=== PATIENT | male | born 1975 | race Two or more races ===

== ENCOUNTER 2017-09-05 18:26 | Emergency (ER) | payer MEDICAID ==
[2017-09-05 19:19] LABS: ADD MAN DIFF? NO
[2017-09-05 19:22] LABS: BASOPHILS % 0.5 % (0.0-2.0); EOSINOPHILS # 0.7 10^3/ul (0.0-0.5); EOSINOPHILS % 8.5 % (0.0-7.0); HEMATOCRIT 25.8 % (42.0-52.0); HEMOGLOBIN 8.4 g/dl (14.0-18.0); LYMPHOCYTES # 1.4 10^3/ul (0.8-2.9); LYMPHOCYTES % 17.5 % (15.0-51.0); MEAN CORPUSCULAR HEMOGLOBIN 33.1 pg (29.0-33.0); MEAN CORPUSCULAR HGB CONC 32.6 g/dl (32.0-37.0); MEAN CORPUSCULAR VOLUME 101.6 fl (82.0-101.0); MEAN PLATELET VOLUME 9.5 fl (7.4-10.4); MONOCYTE # 0.7 10^3/ul (0.3-0.9); NEUTROPHILS % 64.1 % (39.0-77.0); PLATELET COUNT 261 10^3/UL (140-415); RED BLOOD COUNT 2.54 10^6/ul (4.70-6.10); RED CELL DISTRIBUTION WIDTH 13.1 % (11.5-14.5)
[2017-09-05 19:22] LABS: WHITE BLOOD COUNT 7.9 10^3/ul (4.8-10.8)
[2017-09-05] MEDS: ASPIRIN 81 MG TAB PO (19:24)
[2017-09-05] MEDS: FUROSEMIDE 40 MG INJ IV (19:24)
[2017-09-05] MEDS: NITROGLYCERIN 2% 1 GM OINT PKT TD (19:25)
[2017-09-05 19:41] LABS: INR 0.98; PROTIME 13.1 Sec (11.9-14.9)
[2017-09-05 19:46] LABS: ANION GAP 15 (8-16); BLOOD UREA NITROGEN 56 mg/dl (7-20); CALCIUM 8.3 mg/dl (8.4-10.2); CARBON DIOXIDE 35 mmol/L (21-31); CHLORIDE 95 mmol/L (97-110); CREATININE 8.61 mg/dl (0.61-1.24); GLUCOSE 94 mg/dl (70-220); POTASSIUM 5.1 mmol/L (3.5-5.1); SODIUM 140 mmol/L (135-144)
[2017-09-05 19:56] LABS: TROPONIN-I 0.048 ng/ml (0.00-0.12)
[2017-09-05] MEDS ORDERED: ONDANSETRON 4 MG INJ IV (21:00)
[2017-09-05] MEDS ORDERED: ACETAMINOPHEN 325 MG TAB PO ×2 (21:00→21:30)
[2017-09-05] MEDS ORDERED: ONDANSETRON 4 MG TAB PO (21:30)
[2017-09-05] MEDS ORDERED: NACL 0.9% 3 ML SYG IV (21:30)
== END 2017-09-05 22:09 | disposition left against medical advice (07) ==
LOC: E/R 18:26
DX: E87.70 Fluid overload, unspecified (principal); N18.6 End stage renal disease; R00.2 Palpitations; Z99.2 Dependence on renal dialysis; Z79.01 Long term (current) use of anticoagulants
CPT/HCPCS: 36415; 71045; 80048; 84484; 85025; 85610; 85730; 93005; 99285-25

== ENCOUNTER 2017-09-06 22:00 | Inpatient (IN) | payer MEDICAID ==
[2017-09-07] MEDS ORDERED: NACL 0.9% 3 ML SYG IV (01:00)
[2017-09-07] MEDS ORDERED: ACETAMINOPHEN 325 MG TAB PO ×2 (01:00→11:30)
[2017-09-07] MEDS ORDERED: METOCLOPRAMIDE 10 MG INJ IV (01:00)
[2017-09-07] MEDS: FUROSEMIDE 40 MG INJ IV ×2 (01:09→04:35)
[2017-09-07] MEDS: hydrALAzine 20 MG INJ IV ×3 (01:09→09:16)
[2017-09-07] MEDS: NITROGLYCERIN (SL) 0.4 MG TAB SL (01:12)
[2017-09-07 01:35] LABS: ADD MAN DIFF? NO
[2017-09-07 01:37] LABS: WHITE BLOOD COUNT 9.1 10^3/ul (4.8-10.8)
[2017-09-07 01:37] LABS: BASOPHIL # 0.1 10^3/ul (0.0-0.1); BASOPHILS % 0.7 % (0.0-2.0); EOSINOPHILS # 0.8 10^3/ul (0.0-0.5); EOSINOPHILS % 8.5 % (0.0-7.0); HEMOGLOBIN 8.7 g/dl (14.0-18.0); LYMPHOCYTES # 1.7 10^3/ul (0.8-2.9); LYMPHOCYTES % 19.1 % (15.0-51.0); MEAN CORPUSCULAR HEMOGLOBIN 32.6 pg (29.0-33.0); MEAN CORPUSCULAR HGB CONC 32.2 g/dl (32.0-37.0); MEAN CORPUSCULAR VOLUME 101.1 fl (82.0-101.0); MEAN PLATELET VOLUME 9.6 fl (7.4-10.4); MONOCYTE # 0.9 10^3/ul (0.3-0.9); MONOCYTES % 9.9 % (0.0-11.0); NEUTROPHIL # 5.6 10^3/ul (1.6-7.5); NEUTROPHILS % 61.5 % (39.0-77.0); PLATELET COUNT 271 10^3/UL (140-415); RED BLOOD COUNT 2.67 10^6/ul (4.70-6.10); RED CELL DISTRIBUTION WIDTH 12.9 % (11.5-14.5)
[2017-09-07] MEDS ORDERED: LABETALOL HCL 20MG INJ (01:52)
[2017-09-07] MEDS: LABETALOL HCL 20MG INJ IV ×2 (01:59→04:15)
[2017-09-07 02:04] LABS: ALANINE AMINOTRANSFERASE 164 IU/L (13-69); ALBUMIN 3.2 g/dl (3.3-4.9); ALBUMIN/GLOBULIN RATIO 1.18; ALKALINE PHOSPHATASE 163 IU/L (42-121); ANION GAP 22 (8-16); ASPARTATE AMINO TRANSFERASE 111 IU/L (15-46); BLOOD UREA NITROGEN 79 mg/dl (7-20); CALCIUM 8.8 mg/dl (8.4-10.2); CARBON DIOXIDE 30 mmol/L (21-31); CHLORIDE 95 mmol/L (97-110); CREATININE 11.41 mg/dl (0.61-1.24); GLUCOSE 98 mg/dl (70-220); LIPASE 218 U/L (23-300); POTASSIUM 5.2 mmol/L (3.5-5.1); SODIUM 142 mmol/L (135-144); TOTAL PROTEIN 5.9 g/dl (6.1-8.1)
[2017-09-07 02:06] LABS: CHOL/HDL RATIO 2.9 RATIO; CHOLESTEROL 128 mg/dl (100-200); HDL CHOLESTEROL 44 mg/dl (27-67); LDL CHOLESTEROL,CALCULATED 70 mg/dl; MAGNESIUM 2.5 mg/dl (1.7-2.5); TRIGLYCERIDES 71 mg/dl (0-149)
[2017-09-07 02:06] LABS: PHOSPHORUS 8.7 mg/dl (2.5-4.9)
[2017-09-07 02:08] LABS: HEMOGLOBIN A1C 4.8 % (0-5.9)
[2017-09-07] MEDS: PROMETHAZINE/CODEINE 5ML CUP PO (02:57)
[2017-09-07] MEDS ORDERED: FUROSEMIDE 40 MG INJ IV (03:00)
[2017-09-07] MEDS ORDERED: METOLAZONE 5 MG TAB PO (03:00)
[2017-09-07] MEDS: METOLAZONE 5 MG TAB PO (03:48)
[2017-09-07] MEDS ORDERED: ALBUTEROL/IPRATROPIUM (NEB) 3 ML AMP HHN (04:00)
[2017-09-07] MEDS: LORAZEPAM 2 MG INJ IV (04:11)
[2017-09-07 04:41] LABS: B-TYPE NATRIURETIC PEPTIDE 138000 PG/ML (0-125)
[2017-09-07 10:37] LABS: HEPATITIS B SURFACE ANTIGEN NEGATIVE (NEGATIVE)
[2017-09-07] MEDS: NIFEdipine (XL) 60 MG TAB PO (11:00)
[2017-09-07] MEDS ORDERED: ONDANSETRON 4 MG INJ IV (11:30)
[2017-09-07] MEDS ORDERED: FAMOTIDINE 20 MG TAB PO (11:30)
[2017-09-07] MEDS ORDERED: ZOLPIDEM 5 MG TAB PO (11:30)
[2017-09-07] MEDS: CALCIUM ACETATE 667 MG CAP PO ×2 (11:45→18:14)
[2017-09-07] MEDS: DOCUSATE SODIUM 100 MG CAP PO ×2 (11:58→21:45)
[2017-09-07] MEDS: HEPARIN 5,000 UNIT/0.5 ML VIAL SC ×2 (11:59→21:47)
[2017-09-07] MEDS: NIFEdipine (XL) 90 MG TAB PO (21:49)
[2017-09-07] MEDS: FAMOTIDINE 20 MG TAB PO (21:50)
[2017-09-08 05:03] LABS: ADD MAN DIFF? NO
[2017-09-08 05:08] LABS: BASOPHIL # 0.1 10^3/ul (0.0-0.1); BASOPHILS % 0.7 % (0.0-2.0); EOSINOPHILS # 0.7 10^3/ul (0.0-0.5); EOSINOPHILS % 7.5 % (0.0-7.0); HEMATOCRIT 27.5 % (42.0-52.0); HEMOGLOBIN 8.9 g/dl (14.0-18.0); LYMPHOCYTES # 1.2 10^3/ul (0.8-2.9); LYMPHOCYTES % 12.5 % (15.0-51.0); MEAN CORPUSCULAR HEMOGLOBIN 32.7 pg (29.0-33.0); MEAN CORPUSCULAR HGB CONC 32.4 g/dl (32.0-37.0); MEAN CORPUSCULAR VOLUME 101.1 fl (82.0-101.0); MEAN PLATELET VOLUME 9.3 fl (7.4-10.4); MONOCYTES % 10.1 % (0.0-11.0); NEUTROPHIL # 6.8 10^3/ul (1.6-7.5); NEUTROPHILS % 68.8 % (39.0-77.0); PLATELET COUNT 307 10^3/UL (140-415); RED BLOOD COUNT 2.72 10^6/ul (4.70-6.10); RED CELL DISTRIBUTION WIDTH 13.1 % (11.5-14.5)
[2017-09-08 05:08] LABS: WHITE BLOOD COUNT 9.8 10^3/ul (4.8-10.8)
[2017-09-08 05:43] LABS: ANION GAP 18 (8-16); BLOOD UREA NITROGEN 60 mg/dl (7-20); CALCIUM 8.5 mg/dl (8.4-10.2); CARBON DIOXIDE 27 mmol/L (21-31); CHLORIDE 96 mmol/L (97-110); GLUCOSE 136 mg/dl (70-220); MAGNESIUM 2.3 mg/dl (1.7-2.5); SODIUM 136 mmol/L (135-144)
[2017-09-08 05:45] LABS: ALANINE AMINOTRANSFERASE 113 IU/L (13-69); ALBUMIN 2.8 g/dl (3.3-4.9); ALKALINE PHOSPHATASE 143 IU/L (42-121); ASPARTATE AMINO TRANSFERASE 39 IU/L (15-46); TOTAL PROTEIN 5.1 g/dl (6.1-8.1)
[2017-09-08] MEDS: DOCUSATE SODIUM 100 MG CAP PO ×2 (08:44→21:51)
[2017-09-08] MEDS: HEPARIN 5,000 UNIT/0.5 ML VIAL SC ×2 (08:46→21:53)
[2017-09-08] MEDS: CALCIUM ACETATE 667 MG CAP PO ×3 (08:46→17:45)
[2017-09-08] MEDS: NIFEdipine (XL) 90 MG TAB PO ×2 (08:47→21:51)
[2017-09-08] MEDS: FAMOTIDINE 20 MG TAB PO (21:50)
[2017-09-09 05:07] LABS: WHITE BLOOD COUNT 9.7 10^3/ul (4.8-10.8)
[2017-09-09 05:07] LABS: ADD MAN DIFF? NO; BASOPHIL # 0.1 10^3/ul (0.0-0.1); BASOPHILS % 0.8 % (0.0-2.0); EOSINOPHILS # 0.9 10^3/ul (0.0-0.5); EOSINOPHILS % 8.9 % (0.0-7.0); HEMATOCRIT 28.5 % (42.0-52.0); HEMOGLOBIN 9.1 g/dl (14.0-18.0); LYMPHOCYTES # 1.4 10^3/ul (0.8-2.9); LYMPHOCYTES % 14.8 % (15.0-51.0); MEAN CORPUSCULAR HEMOGLOBIN 32.4 pg (29.0-33.0); MEAN CORPUSCULAR HGB CONC 31.9 g/dl (32.0-37.0); MEAN CORPUSCULAR VOLUME 101.4 fl (82.0-101.0); MEAN PLATELET VOLUME 9.4 fl (7.4-10.4); MONOCYTE # 1.2 10^3/ul (0.3-0.9); MONOCYTES % 11.9 % (0.0-11.0); NEUTROPHIL # 6.1 10^3/ul (1.6-7.5); NEUTROPHILS % 63.3 % (39.0-77.0); PLATELET COUNT 288 10^3/UL (140-415); RED BLOOD COUNT 2.81 10^6/ul (4.70-6.10)
[2017-09-09 05:41] LABS: ALBUMIN 3.1 g/dl (3.3-4.9); ANION GAP 14 (8-16); BLOOD UREA NITROGEN 49 mg/dl (7-20); CALCIUM 9.2 mg/dl (8.4-10.2); CARBON DIOXIDE 31 mmol/L (21-31); CHLORIDE 98 mmol/L (97-110); GLUCOSE 103 mg/dl (70-220); PHOSPHORUS 7.8 mg/dl (2.5-4.9); POTASSIUM 5.2 mmol/L (3.5-5.1); SODIUM 138 mmol/L (135-144)
[2017-09-09] MEDS: hydrALAzine 20 MG INJ IV (05:46)
[2017-09-09] MEDS: CALCIUM ACETATE 667 MG CAP PO ×3 (08:43→18:09)
[2017-09-09] MEDS: DOCUSATE SODIUM 100 MG CAP PO ×3 (08:43→22:31)
[2017-09-09] MEDS: NIFEdipine (XL) 90 MG TAB PO ×3 (08:44→22:30)
[2017-09-09] MEDS: HEPARIN 5,000 UNIT/0.5 ML VIAL SC ×2 (08:45→21:00)
[2017-09-09] MEDS: PROMETHAZINE/CODEINE 5ML CUP PO (10:09)
[2017-09-09] MEDS: ALBUMIN HUMAN 25% 100 ML IV (12:32)
[2017-09-09] MEDS: NA POLYST SULFON 15 GM/60 ML BTL PO (15:00)
[2017-09-09] MEDS: FAMOTIDINE 20 MG TAB PO ×2 (21:00→22:30)
== END 2017-09-09 22:47 | disposition home or self-care (01) | DRG 640 ==
LOC: E/R 22:00 → MS3 09-07 00:40
PROC: 5A1D70Z Performance of Urinary Filtration, Intermittent, Less than 6 Hours Per Day (ICD-10-PCS; 2017-09-07)
PROC: 5A09357 Assistance with Respiratory Ventilation, Less than 24 Consecutive Hours, Continuous Positive Airway Pressure (ICD-10-PCS; 2017-09-07)
PROC: 5A1D70Z Performance of Urinary Filtration, Intermittent, Less than 6 Hours Per Day (ICD-10-PCS; principal; 2017-09-09)
DX: E87.79 Other fluid overload (principal); N18.6 End stage renal disease; J96.01 Acute respiratory failure with hypoxia; I12.0 Hypertensive chronic kidney disease with stage 5 chronic kidney disease or end stage renal disease; I42.9 Cardiomyopathy, unspecified; I16.1 Hypertensive emergency; Z99.2 Dependence on renal dialysis; E87.5 Hyperkalemia; E78.5 Hyperlipidemia, unspecified; I16.0 Hypertensive urgency
CPT/HCPCS: 36415; 71045; 76705; 80053; 80061; 80069; 80076; 83036; 83690; 83735; 83880; 84100; 84443; 84484; 85025; 87340; 90935; 93005; 93306; 93970; 94660; 96374; 96375; 99291-25